=== PATIENT | female | born 1990 | race Caucasian/White ===

== ENCOUNTER 2017-06-07 11:40 | Emergency (ER) | payer OTHER ==
[~2017-06-07] VITALS: Ht 172.7 cm; Wt 102.4 kg
[~2017-06-07 11:40] MED LIST: BENTYL10 MG PO; CAMILA0.35 MG PO; CHROMAGEN,1 CAPSULE PO; IBUPROFEN800 MG PO; MECLIZINE HCL25 MG PO; NAPROXEN250 MG PO; PRENATAL TABLE1 EAC3 PO; REGLAN10 MG PO; ZANTAC150 MG PO
[2017-06-07 11:55] VITALS: BP 121/78
== END 2017-06-07 15:23 | disposition home or self-care (01) ==
LOC: EME 11:40
DX: O26.892 Other specified pregnancy related conditions, second trimester (principal); K12.2 Cellulitis and abscess of mouth; J02.9 Acute pharyngitis, unspecified; Z3A.16 16 weeks gestation of pregnancy
CPT/HCPCS: 70360; 99281; 99283; J8540

== ENCOUNTER 2017-11-20 17:16 | Inpatient (IN) | payer OTHER ==
[2017-11-20] VITALS (8 sets, daily range): BP systolic 109–125; BP diastolic 56–71
[~2017-11-20] VITALS: Ht 172.7 cm; Wt 115.0 kg
[2017-11-20 18:17] LABS: BASOPHIL (%) 0.1 % (0-1); EOSINOPHIL (%) 0.3 % (0-5); HEMATOCRIT 34.2 % (36.0-46.0); HEMOGLOBIN 11.3 G/DL (11.9-15.5); IMMATURE GRANULOCYTE (%) 0.7 % (0.0-0.7); LYMPHOCYTE (%) 26.7 % (15-42); LYMPHOCYTE COUNT 2.3 K/uL (1.0-2.8); MCV 87.7 FL (83-99); MONOCYTE (%) 8.8 % (3-12); MONOCYTE COUNT 0.8 K/uL (0-0.8); NEUTROPHIL (%) 63.4 % (45-76); NEUTROPHIL COUNT 5.6 K/uL (1.8-6.4); PLATELET COUNT 219 K/uL (156-360); RBC DIS.WIDTH-CV 14.1 % (11.8-14.6); RBC DIS.WIDTH-SD 45.2 % (39-53); WHITE BLOOD COUNT 8.8 K/uL (4.1-10.2)
[2017-11-20] MEDS ORDERED: CELEXA20 MG PO ×2 (18:44→18:50)
[2017-11-20] MEDS ORDERED: VITRON-C TABLE1 EACH PO (18:51)
[2017-11-20] MEDS ORDERED: PRENATAL TABLE1 EAC3 PO (18:51)
[2017-11-20 19:39] LABS: AMPHETAMINE NEGATIVE (500 ng/mL); BARBITURATES NEGATIVE (200 ng/mL); BENZODIAZEPINES NEGATIVE (150 ng/mL); BUPRENORPHINE NEGATIVE (10 ng/mL); COCAINE NEGATIVE (150 ng/mL); METHADONE NEGATIVE (200 ng/mL); METHAMPHETAMINE NEGATIVE (500 ng/mL); OPIATES (MORPHINE) NEGATIVE (100 ng/mL); OXYCODONE NEGATIVE (100 ng/mL); PHENCYCLIDINE NEGATIVE (25 ng/mL); PROPOXYPHENE NEGATIVE (300 ng/mL); THC CANNABINOIDS NEGATIVE (50 ng/mL); TRICYCLIC ANTIDEPRESSANTS NEGATIVE (300 ng/mL)
[2017-11-21] VITALS (35 sets, daily range): BP systolic 90–140; BP diastolic 50–73
[2017-11-21 17:46] LABS: BASOPHIL (%) 0.1 % (0-1); EOSINOPHIL (%) 0.1 % (0-5); HEMATOCRIT 33.8 % (36.0-46.0); HEMOGLOBIN 11.1 G/DL (11.9-15.5); IMMATURE GRANULOCYTE (%) 0.5 % (0.0-0.7); LYMPHOCYTE (%) 13.9 % (15-42); LYMPHOCYTE COUNT 1.8 K/uL (1.0-2.8); MCH 29.4 PG (29.0-34.0); MCHC 32.8 G/DL (30.0-36.0); MCV 89.4 FL (83-99); MONOCYTE (%) 6.2 % (3-12); MONOCYTE COUNT 0.8 K/uL (0-0.8); NEUTROPHIL (%) 79.2 % (45-76); NEUTROPHIL COUNT 10.3 K/uL (1.8-6.4); PLATELET COUNT 203 K/uL (156-360); RBC DIS.WIDTH-CV 14.3 % (11.8-14.6); RBC DIS.WIDTH-SD 46.6 % (39-53); RED BLOOD COUNT 3.78 M/uL (3.80-5.20)
[2017-11-22 07:05] LABS: HEMATOCRIT 34.6 % (36.0-46.0); HEMOGLOBIN 11.1 G/DL (11.9-15.5); MCH 29.1 PG (29.0-34.0); MCHC 32.1 G/DL (30.0-36.0); MCV 90.6 FL (83-99); PLATELET COUNT 192 K/uL (156-360); RBC DIS.WIDTH-CV 14.5 % (11.8-14.6); RBC DIS.WIDTH-SD 47.8 % (39-53); RED BLOOD COUNT 3.82 M/uL (3.80-5.20); WHITE BLOOD COUNT 10.3 K/uL (4.1-10.2)
[2017-11-22 14:31] VITALS: BP 110/54
[2017-11-22 23:00] VITALS: BP 120/63
[2017-11-23 07:48] VITALS: BP 102/59
[2017-11-23] MEDS ORDERED: CELEXA20 MG PO (09:04)
[2017-11-23] MEDS ORDERED: IBUPROFEN800 MG PO (09:04)
== END 2017-11-23 13:43 | disposition home or self-care (01) | DRG 774 ==
LOC: LDRP-OP 17:16 → 2WEST 17:17 → LDRP-OP 12-20 10:14
PROVIDERS: Advanced Practice Midwife
PROC: 3E0P7VZ Introduction of Hormone into Female Reproductive, Via Natural or Artificial Opening (ICD-10-PCS; principal; 2017-11-20)
PROC: 10E0XZZ Delivery of Products of Conception, External Approach (ICD-10-PCS; 2017-11-21)
PROC: 10907ZC Drainage of Amniotic Fluid, Therapeutic from Products of Conception, Via Natural or Artificial Opening (ICD-10-PCS; 2017-11-21)
PROC: 3E0R3BZ Introduction of Anesthetic Agent into Spinal Canal, Percutaneous Approach (ICD-10-PCS; 2017-11-21)
PROC: 0W8NXZZ Division of Female Perineum, External Approach (ICD-10-PCS; 2017-11-21)
PROC: 00HU33Z Insertion of Infusion Device into Spinal Canal, Percutaneous Approach (ICD-10-PCS; 2017-11-21)
DX: O76 Abnormality in fetal heart rate and rhythm complicating labor and delivery (principal); O72.1 Other immediate postpartum hemorrhage; O69.81X0 Labor and delivery complicated by cord around neck, without compression, not applicable or unspecified; O36.8130 Decreased fetal movements, third trimester, not applicable or unspecified; O99.824 Streptococcus B carrier state complicating childbirth; O48.0 Post-term pregnancy; Z3A.40 40 weeks gestation of pregnancy; Z37.0 Single live birth; O99.214 Obesity complicating childbirth; E66.9 Obesity, unspecified; Z68.32 Body mass index [BMI] 32.0-32.9, adult; O99.344 Other mental disorders complicating childbirth; F41.9 Anxiety disorder, unspecified; O99.62 Diseases of the digestive system complicating childbirth; K58.9 Irritable bowel syndrome, unspecified
CPT/HCPCS: 59025; 85025; 85027; 86850; 86900; 86901; 86920; C1755; G0378; J0595; J2210; J2405; J2540; J2795; J3010; J7120; Q0169

== ENCOUNTER 2017-12-27 05:49 | Day surgery (SDC) | payer OTHER ==
[~2017-12-27] VITALS: Ht 172.7 cm; Wt 101.2 kg
[~2017-12-27 05:49] MED LIST changes: +CELEXA20 MG PO; +TYLENOL EXTRA500 MG PO; +VITRON-C TABLE1 EACH PO
[2017-12-27 06:26] LABS: BASOPHIL (%) 0.2 % (0-1); EOSINOPHIL (%) 1.2 % (0-5); EOSINOPHIL COUNT 0.1 K/uL (0-0.3); HEMATOCRIT 42.6 % (36.0-46.0); HEMOGLOBIN 13.7 G/DL (11.9-15.5); IMMATURE GRANULOCYTE (%) 0.1 % (0.0-0.7); LYMPHOCYTE (%) 38.9 % (15-42); LYMPHOCYTE COUNT 3.6 K/uL (1.0-2.8); MCH 28.2 PG (29.0-34.0); MCHC 32.2 G/DL (30.0-36.0); MCV 87.7 FL (83-99); MONOCYTE (%) 7.6 % (3-12); MONOCYTE COUNT 0.7 K/uL (0-0.8); NEUTROPHIL COUNT 4.8 K/uL (1.8-6.4); PLATELET COUNT 316 K/uL (156-360); RBC DIS.WIDTH-CV 12.8 % (11.8-14.6); RBC DIS.WIDTH-SD 40.9 % (39-53); RED BLOOD COUNT 4.86 M/uL (3.80-5.20); WHITE BLOOD COUNT 9.2 K/uL (4.1-10.2)
[2017-12-27 06:35] VITALS: BP 117/75
[2017-12-27] MEDS ORDERED: IBUPROFEN800 MG PO (08:43)
[2017-12-27] MEDS ORDERED: ENDOCET 5-3251 EACH PO (08:43)
[2017-12-27 10:43] VITALS: BP 126/71
[2017-12-27 11:26] VITALS: BP 126/73
== END 2017-12-27 11:32 | disposition home or self-care (01) ==
LOC: SDC 05:49
PROVIDERS: Obstetrics & Gynecology
PROC: 0HQ9XZZ Repair Perineum Skin, External Approach (ICD-10-PCS; principal; 2017-12-27)
DX: O90.1 Disruption of perineal obstetric wound (principal)
CPT/HCPCS: 81025; 85025; 86850; 86900; 86901; J0131; J0690; J1100; J1170; J1885; J2250; J2405; J3010